=== PATIENT | male | born 1995 | race Caucasian/White ===

== ENCOUNTER 2020-01-26 19:31 | Emergency (ER) | payer BC ==
[~2020-01-26] VITALS: Ht 180.3 cm; Wt 97.9 kg
[2020-01-26 19:35] VITALS: BP 147/76
[2020-01-26] MEDS ORDERED: HYDROcodone/APAP 5/325 TABLET PO ONE (20:00)
[2020-01-26] MEDS ORDERED: HYDROcodone/APAP 5/325 TABLET ONE (20:00)
== END 2020-01-26 21:16 | disposition home or self-care (01) ==
LOC: ED 21:00
DX: S63.522A Sprain of radiocarpal joint of left wrist, initial encounter (principal); M79.642 Pain in left hand; M25.532 Pain in left wrist; F17.200 Nicotine dependence, unspecified, uncomplicated; W19.XXXA Unspecified fall, initial encounter; Y93.89 Activity, other specified; Y92.89 Other specified places as the place of occurrence of the external cause; Y99.8 Other external cause status
CPT/HCPCS: 29125; 99284